=== PATIENT | male | born 1965 | race Hispanic/Latino ===

== ENCOUNTER 2024-07-24 18:07 | Emergency (ER) | payer OTHER ==
[~2024-07-24] VITALS: Ht 177.8 cm; Wt 113.4 kg
[2024-07-24 18:20] VITALS: PULSE 79; RESP 18; TEMP 98.2
[2024-07-24 23:25] VITALS: BP 128/86; O2SAT 99
== END 2024-07-24 23:15 | disposition home or self-care (01) ==
LOC: ER 18:18
DX: Z46.6 Encounter for fitting and adjustment of urinary device (principal); I12.9 Hypertensive chronic kidney disease with stage 1 through stage 4 chronic kidney disease, or unspecified chronic kidney disease; E11.22 Type 2 diabetes mellitus with diabetic chronic kidney disease; N18.9 Chronic kidney disease, unspecified; M54.89 Other dorsalgia; G89.29 Other chronic pain; K21.9 Gastro-esophageal reflux disease without esophagitis; Z86.73 Personal history of transient ischemic attack (TIA), and cerebral infarction without residual deficits
CPT/HCPCS: 99283